=== PATIENT | male | born 1945 | race Caucasian/White ===

== ENCOUNTER → 2018-09-27 | Outpatient (CLI) | payer BC ==
[~2018-09-27] MED LIST: AMIO200 PO; AMLO5; AMOCLA875 PO; ANDROGEL1.25 GM TD; ASCO500 PO; ASPI81EC; CARV25 PO; CENTRUM MEN'S1 EACH PO; DABI150C PO; DILT120 PO; DILTIAZEM 24HR240 M1 PO; ESOM20 PO; FERR325 PO; FISH1000; FLEC50 PO; FURO20 PO; FURO40 PO; HYDCHL25; LEVO750 PO; LISI20; METO25ER PO; METO50ER PO; OMEP20ER PO; PRED20 PO; Prilosec Otc20 MG PO; Prinivil10 MG PO; SIMV20; SIMV40 PO; TADA10TA PO; VICODIN 5-3001 EACH PO; WARF5 PO; WARF7.5 PO; XARELTO20 MG PO; ZOLP10 PO
== END | disposition home or self-care (01) ==
LOC: LAB SHORT 13:52 → PLD 13:52
DX: L72.0 Epidermal cyst (principal)
CPT/HCPCS: 88305

== ENCOUNTER 2019-07-25 06:17 | Inpatient (IN) | payer MEDICARE, BC ==
[~2019-07-25] VITALS: Ht 182.9 cm; Wt 121.0 kg
[~2019-07-25 06:17] MED LIST changes: -ANDROGEL1.25 GM TD; -CARV25 PO; -DILTIAZEM 24HR240 M1 PO; -XARELTO20 MG PO
[2019-07-25 06:54] LABS: BASOPHILS ABSOLUTE AUTO 0.05 K/mm3 (0.00-0.23); BASOPHILS PERCENT AUTO 1 % (0-2); EOSINOPHILS ABSOLUTE AUTO 0.38 K/mm3 (0.00-0.68); EOSINOPHILS PERCENT AUTO 4 % (0-6); Hematocrit 43.4 % (37.0-53.0); Hemoglobin 14.4 g/dL (13.5-17.5); IMMATURE GRAN ABSOLUTE AUTO 0.06 K/mm3 (0.00-0.10); IMMATURE GRAN PERCENT AUTO 1 % (0-1); LYMPHOCYTES ABSOLUTE AUTO 1.08 K/mm3 (0.84-5.20); LYMPHOCYTES PERCENT AUTO 11 % (21-46); MONOCYTES ABSOLUTE AUTO 0.73 K/mm3 (0.16-1.47); MONOCYTES PERCENT AUTO 8 % (4-13); Mean Corpuscular HGB 32.8 pg (26.0-34.0); Mean Corpuscular HGB Conc 33.2 g/dL (31.5-36.5); Mean Corpuscular Volume 99 fL (80-100); Mean Platelet Volume 9.6 fL (9.1-12.4); NEUTROPHILS ABSOLUTE AUTO 7.21 K/mm3 (1.96-9.15); NEUTROPHILS PERCENT AUTO 76 % (41-73); Platelet Count 319 K/mm3 (150-400); RDW Coefficient Variation 13.1 % (11.7-14.2); RDW Standard Deviation 47.8 fL (35.1-46.3); Red Blood Cell Count 4.39 M/mm3 (4.30-5.90); White Blood Cell Count 9.51 K/mm3 (4.00-11.30)
[2019-07-25 07:05] LABS: Alanine Aminotransfer (ALT/SGP 27 U/L (12-78); Albumin, Blood 3.4 g/dL (3.4-5.0); Anion Gap 6 mmol/L (6-16); Aspartate Aminotrans (AST/SGOT 51 U/L (12-37); Bilirubin, Total 0.5 mg/dL (0.1-1.0); Blood Urea Nitrogen 24 mg/dL (8-24); Bun/Creatinine Ratio 19.5 (12.0-20.0); CO2, Blood 30 mmol/L (21-32); Calcium, Blood 8.8 mg/dL (8.5-10.1); Chloride, Blood 106 mmol/L (98-108); Creatinine, Blood 1.23 mg/dL (0.60-1.20); Glomerular Filtration Rate >60 (60-); Glucose, Blood 113 mg/dL (70-99); Potassium, Blood 3.7 mmol/L (3.5-5.5); Sodium, Blood 142 mmol/L (136-145)
[2019-07-25 07:09] LABS: Alk Phos 77 U/L (50-136); Globulin, Blood 3.3 g/dL (2.2-4.0); Total Protein, Blood 6.7 g/dL (6.4-8.2); Troponin I <0.015 ng/mL (0.000-0.040)
[2019-07-25 08:57] LABS: Source, Urine Clean Catch
[2019-07-25 09:06] LABS: Appearance, Urine Clear (Clear); Bilirubin, Urine Neg (Neg); Blood, Urine 1+ (Neg); Color, Urine Yellow (P-Yellow); Glucose Qualitative, Urine Neg (Neg); Ketones, Urine Neg (Neg); Leukocyte Esterase, Urine Neg (Neg); Nitrite, Urine Neg (Neg); Protein, Urine 2+ (Neg); Urobilinogen, Urine 2+ (Normal); pH, Urine 6.5 (5.0-8.0)
[2019-07-25 09:18] LABS: Bacteria Rare /hpf; Red Blood Cells, Urine 0-2 /hpf (0-2); Squamous Epithelial Cells Not Seen /hpf (Few)
[2019-07-25] MEDS ORDERED: Ambien10 MG PO (12:41)
[2019-07-25] MEDS ORDERED: Nexium40 MG PO (12:41)
[2019-07-25] MEDS ORDERED: SPIRIVA RESPIMAT4 G1 INH (12:41)
[2019-07-25] MEDS ORDERED: HYDROCODONE-AC1 EAC1 PO (12:42)
[2019-07-25] MEDS ORDERED: FURO40 PO (12:43)
[2019-07-25] MEDS ORDERED: XARELTO20 MG PO (12:43)
[2019-07-25] MEDS ORDERED: TAMSULOSIN HCL0.4 M1 PO (12:44)
[2019-07-25] MEDS ORDERED: Androgel5 GM TOP (12:46)
[2019-07-25] MEDS ORDERED: DILTIAZEM 24HR240 M1 PO (12:47)
[2019-07-25] MEDS ORDERED: Cialis5 MG PO (12:48)
[2019-07-25] MEDS ORDERED: LOSARTAN POTASS25 M2 PO (12:48)
[2019-07-25] MEDS ORDERED: ASCO500 PO (12:49)
[2019-07-25] MEDS ORDERED: FEROSUL325 MG PO (12:49)
[2019-07-25] MEDS ORDERED: CARV25 PO (12:49)
[2019-07-25] MEDS ORDERED: THERA1 EACH PO (12:50)
--- NOTE | 2019-07-25 13:39 | NUR ---
PT ARRIVAL... PT ARRIVED ON UNIT VIA GURNEY. PT IS A&Ox4 AND IND IN THE ROOM. PT WAS ADMITTED FOR BRANDEN FLEMING IN THE AM AND IS TO BE NPO AFTER MIDNIGHT. PT IS C/O OF SEVERE PAIN TO HIS ABD RADIATING TO HIS BACK. PT'S VS STABLE AT THIS TIME PT IS ON 4L NC WITH O2 SATS >91%. PT USES CPAP AT NIGHT. PT MEDICATED PER EMAR FOR PAIN WITH GOOD RESULTS. PT IS A LITTLE DROWSY BUT WAKES EASY AND IS ABLE TO RESPOND APROP. CALL LIGHT IN REACH WILL CONTINUE TO MONITOR.
[2019-07-25 19:01] LABS: PCO2 Arterial 37.8 mmHg (35-45); pH Blood Arterial 7.46 (7.35-7.45)
--- NOTE | 2019-07-25 19:31 | NUR ---
SHIFT SUMMARY... AT APROX 1800 THIS RN WENT INTO THE PT'S ROOM TO GIVE MEDICATIONS, PT APPEARED TO BE IN RESPIRATORY DISTRESS, HIS FACE WAS DUSKY, RR 38 EVEN BUT LABORED, AND HIS FINGERS WERE DUSKY/PALE. A FOREHEAD O2 PROB WAS NEEDED TO OBATAIN A GOOD PULSEOX READING. PT'S O2 WAS INCREASED TO 7L NON-REBREATHER, PT STATED THAT HE WAS HAVING SEVERE ABD PAIN 7/10, PT WAS MEDICATED FOR PAIN WITH DILAUDED 1MG, PT HAD BEEN MEDICATED WITH THIS DOSE BEFORE WITH GOOD RESULTS. PT'S RR DECREASED BUT PT WAS UNABLE TO ANSWER QUESTIONS AROPPRIATELY. WHEN ASKED WHERE HE THOUGHT HE WAS PT STATED "[facility]" PT WAS UNABLE TO ANSWER ANY OTHER QUESTIONS EXCEPT FOR "WHAT." PT'S OTHER VS DURING THIS TIME WERE STABLE. PT IS IN AFIB IN THE 90'S-100'S. PROVIDER WAS CALLED AND ORDERS OBTAINED FOR STAT CHEST XRAY AND SQ LOVENOX. THIS WAS DONE, PT'S O2 WAS TITRATED DOWN TO 2 LNC BUT PT'S MENTAL STATUS WAS STILL NOT THE SAME. HOSPTITAL PROVIDE WAS CALLED AND CAME TO ASSESS THE PT. REPORT WAS GIVEN TO ONCOMING RN.
[2019-07-25 19:52] LABS: Hemoglobin 13.5 g/dL (13.5-17.5); Mean Corpuscular HGB 32.5 pg (26.0-34.0); Mean Corpuscular HGB Conc 32.9 g/dL (31.5-36.5); Mean Corpuscular Volume 99 fL (80-100); Mean Platelet Volume 9.8 fL (9.1-12.4); Platelet Count 252 K/mm3 (150-400); RDW Coefficient Variation 13.6 % (11.7-14.2); RDW Standard Deviation 49.1 fL (35.1-46.3); Red Blood Cell Count 4.15 M/mm3 (4.30-5.90); White Blood Cell Count 12.15 K/mm3 (4.00-11.30)
[2019-07-25 20:08] LABS: D-Dimer, Quantitative 1.82 mg/L FEU (0.00-0.52)
[2019-07-25 20:23] LABS: BAND PERCENT MAN 34 % (0-8); BASOPHILS PERCENT MAN 0 % (0-2); EOSINOPHILS PERCENT MAN 0 % (0-6); LYMPHOCYTES ABSOLUTE MAN 0.12 K/mm3 (0.84-5.20); LYMPHOCYTES PERCENT MAN 1 % (21-46); METAMYELOCYTE ABSOLUTE MAN 0.24 K/mm3 (0.00-0.00); METAMYELOCYTE PERCENT MAN 2 % (0-0); MONOCYTES ABSOLUTE MAN 0.48 K/mm3 (0.16-1.47); MONOCYTES PERCENT MAN 4 % (4-13); MYELOCYTE ABSOLUTE MAN 0.24 K/mm3 (0.00-0.00); MYELOCYTE PERCENT MAN 2 % (0-0); NEUTROPHILS ABSOLUTE MAN 11.05 K/mm3 (1.96-9.15); SEG NEUTROPHILS PERCENT MAN 57 % (41-73); TOTAL CELLS COUNTED 100
--- NOTE | 2019-07-25 21:26 | NUR ---
This student nurse has permission to access patient information.
[2019-07-25 23:39] LABS: Adenovirus Not Detected (NOT DETECT); Bordetella pertussis Not Detected (NOT DETECT); Chlamydophila pneumoniae Not Detected (NOT DETECT); Coronavirus 229E Not Detected (NOT DETECT); Coronavirus HKU1 Not Detected (NOT DETECT); Coronavirus NL63 Not Detected (NOT DETECT); Coronavirus OC43 Not Detected (NOT DETECT); Human Metapneumovirus Not Detected (NOT DETECT); Human Rhinovirus/Enterovirus Not Detected (NOT DETECT); Influenza A Not Detected (NOT DETECT); Influenza A/2009-H1 Not Detected (NOT DETECT); Influenza A/H1 Not Detected (NOT DETECT); Influenza A/H3 Not Detected (NOT DETECT); Influenza B Not Detected (NOT DETECT); Mycoplasma pneumoniae Not Detected (NOT DETECT); Parainfluenza Virus 1 Not Detected (NOT DETECT); Parainfluenza Virus 2 Not Detected (NOT DETECT); Parainfluenza Virus 3 Not Detected (NOT DETECT); Parainfluenza Virus 4 Not Detected (NOT DETECT); Respiratory Syncytial Virus Not Detected (NOT DETECT)
--- NOTE | 2019-07-25 23:59 | NUR ---
APPROX 1900: PATIENT TAKEN TO HEAD CT AFTER AM NURSE REPORTED CHANGE IN MENTATION, PATIENT UNABLE TO FOLLOW COMMANDS OR ANSWER QUESTIONS AT THAT TIME, PATIENT AT BEDSIDE, ADMISSION COMPLETED. APPROX 1999: PATIENT BACK FROM CT ALERT AND ORIENTED TO ALL AND TALKING IN COMPLETE SENTENCES, ABLE TO COLLOW COMMANDS. PATIENT HAS INTERMITTENT EPISODES OF CONFUSION, VSS, FORESTRY TREE PRUNER AFSANEH AND STAFF WATCHING PATIENT CLOSELY. APPROX 2200 PATIENT HR NOW OVER 100/AFIB, FORESTRY TREE PRUNER AFSANEH AWARE AND ORDERS RECIEVED.
[2019-07-26 00:35] LABS: Hematocrit 39.7 % (37.0-53.0); Mean Corpuscular HGB 32.7 pg (26.0-34.0); Mean Corpuscular HGB Conc 32.7 g/dL (31.5-36.5); Mean Corpuscular Volume 100 fL (80-100); Mean Platelet Volume 9.7 fL (9.1-12.4); Platelet Count 223 K/mm3 (150-400); RDW Coefficient Variation 13.7 % (11.7-14.2); Red Blood Cell Count 3.98 M/mm3 (4.30-5.90); White Blood Cell Count 19.45 K/mm3 (4.00-11.30)
[2019-07-26 00:49] LABS: International Normalized Ratio 1.3; Prothrombin Time Results 13.7 Sec (9.7-11.5)
[2019-07-26 00:56] LABS: Albumin, Blood 3.1 g/dL (3.4-5.0); Albumin/Globulin Ratio 1.1 (0.8-1.8); Bilirubin, Total 5.9 mg/dL (0.1-1.0); Bun/Creatinine Ratio 18.5 (12.0-20.0); Calcium, Blood 8.2 mg/dL (8.5-10.1); Creatinine, Blood 1.46 mg/dL (0.60-1.20); Globulin, Blood 2.9 g/dL (2.2-4.0); Potassium, Blood 3.7 mmol/L (3.5-5.5)
[2019-07-26 01:10] LABS: BAND PERCENT MAN 22 % (0-8); BASOPHILS PERCENT MAN 0 % (0-2); EOSINOPHILS PERCENT MAN 0 % (0-6); LYMPHOCYTES % ATYPICAL MANUAL 1 % (0-0); LYMPHOCYTES ABSOLUTE MAN 1.55 K/mm3 (0.84-5.20); LYMPHOCYTES PERCENT MAN 7 % (21-46); METAMYELOCYTE ABSOLUTE MAN 0.77 K/mm3 (0.00-0.00); METAMYELOCYTE PERCENT MAN 4 % (0-0); MONOCYTES ABSOLUTE MAN 1.75 K/mm3 (0.16-1.47); MONOCYTES PERCENT MAN 9 % (4-13); MYELOCYTE ABSOLUTE MAN 0.19 K/mm3 (0.00-0.00); MYELOCYTE PERCENT MAN 1 % (0-0); NEUTROPHILS ABSOLUTE MAN 15.17 K/mm3 (1.96-9.15); SEG NEUTROPHILS PERCENT MAN 56 % (41-73); TOTAL CELLS COUNTED 100
[2019-07-26 11:30] LABS: Hematocrit 38.9 % (37.0-53.0); Hemoglobin 12.4 g/dL (13.5-17.5)
--- NOTE | 2019-07-26 14:51 | NUR ---
Echocardiogram completed.
--- NOTE | 2019-07-26 15:52 | NUR ---
PT ASSUMED CARE @1200 POST OP LAP NATALEE: GALL BLADDER REMOVAL PT RECEIVED VIA STRETCHER, PT ALERT AND COHERENT. PT HAS 3 ACCESS SITES ON THE ABDOMEN WITH TRISTA DRAIN ON LLQ DRAINING BLOODY FLUID 90 MLS DRAINED OF THIS TIME. PT C/O ABDOMINAL PAIN 8/10 DILAUDID 0.5MG IV ADMINISTERED 15MINS UPON ARRIVAL AND WAS NOT HELPFUL ANOTHER 0.5MG DILAUDID IV ADMINISTERED PT STATED IT'S SLIGHTLY EFFECTIVE PAIN WENT DOWN TO 5/10. HRR STILL AFIB AT 100'S BP SYSTOLIC RANGING 90'S-100'S. PT ARRIVED WITH 4L OF O2 VIA NASAL CANNULA SATS KEPT ABOVE 95%. ABDOMINAL INCISION/ACCESS SITES COVERED WITH GAUZE, DRESSING INTACT, NO OTHER ABNORMALITY NOTED AROUND THE SITE, PT ON CLEAR LIQUID DIET AND WAS ABLE TO TOLERATE. PT CURRENTLY RESTING IN BED WILL MONITOR.
--- NOTE | 2019-07-26 17:13 | NUR ---
SHIFT SUMMARY: PT POST LAP NATALEE WITH GALLBLADDER REMOVAL RETURNED FROM DAY SURGERY ALERT AND COHERENT WITH SOME CONFUSION ABLE TO FOLLOW DIRECTIONS APPROPRIATELY. PT HAD 4 ABDOMINAL ACCESS SITE/INCISION COVERED WITH GAUZE AND CLEAR DRESSING. TRISTA DRAIN ON LEFT MID QUADRANT DRAINED APPROX 100 MLS OF THIS TIME, DRAINAGE BLOODY IN COLOR THIN IN CONSISTENCY. PT HAS BEEN C/O PAIN 8/10 MANAGED WITH DILAUDID IV 1MG Q3 HRS CURRENT PAIN LEVEL 5/10. PT'S BP SYSTOLIC RANGING FROM 90'S-100'S UPON ARRIVAL TO THE UNIT, OF NOW ITS BEEN STABLE IN THE 110'S. HRR REMAINED AFIB ON THE 100'S PT HAS ORDER FOR CARDIZEM DRIP TO START IF ORAL CARDIZEM ID INEFFECTIVE NEEDED. LUNGS COARSE AND DIMINISHED ON THE BASES SATS KEPT ABOVE 90% ON CPAP/NC 3L. PT CURRENTLY RESTING IN BED, INSTRUCTED TO BED REST FOR NOW, PT TEMPORARY ON CLEAR LIQUID DIET S/P CHOLECYSTECTOMY. WILL CONTINUE TO MONITOR.
--- NOTE | 2019-07-26 19:30 | NUR ---
RECEIVED REPORT FROM BASSAM DYER. ASSUMED CARE OF PT. IN NO ACUTE DISTRESS, APPEARS COMFORTABLE AT THIS TIME. ABD GILDARDO CDI AT THIS TIME. PT DENIES ANY NEEDS AT THIS TIME, CALL LIGHT AND POSSESSIONS IN REACH, WILL CONTINUE TO MONITOR.
[2019-07-27 03:44] LABS: Hematocrit 34.8 % (37.0-53.0); Hemoglobin 11.4 g/dL (13.5-17.5); Mean Corpuscular HGB Conc 32.8 g/dL (31.5-36.5); Mean Corpuscular Volume 101 fL (80-100); Mean Platelet Volume 10.3 fL (9.1-12.4); Platelet Count 181 K/mm3 (150-400); RDW Coefficient Variation 13.8 % (11.7-14.2); RDW Standard Deviation 50.9 fL (35.1-46.3); Red Blood Cell Count 3.45 M/mm3 (4.30-5.90); White Blood Cell Count 14.91 K/mm3 (4.00-11.30)
[2019-07-27 03:59] LABS: Albumin, Blood 2.6 g/dL (3.4-5.0); Albumin/Globulin Ratio 0.8 (0.8-1.8); Bilirubin, Total 4.5 mg/dL (0.1-1.0); Bun/Creatinine Ratio 22.8 (12.0-20.0); Calcium, Blood 8.3 mg/dL (8.5-10.1); Creatinine, Blood 1.36 mg/dL (0.60-1.20); Globulin, Blood 3.2 g/dL (2.2-4.0); Total Protein, Blood 5.8 g/dL (6.4-8.2)
[2019-07-27 05:17] LABS: BAND PERCENT MAN 27 % (0-8); BASOPHILS PERCENT MAN 0 % (0-2); EOSINOPHILS PERCENT MAN 0 % (0-6); LYMPHOCYTES ABSOLUTE MAN 0.44 K/mm3 (0.84-5.20); LYMPHOCYTES PERCENT MAN 3 % (21-46); MONOCYTES ABSOLUTE MAN 0.59 K/mm3 (0.16-1.47); MONOCYTES PERCENT MAN 4 % (4-13); NEUTROPHILS ABSOLUTE MAN 13.86 K/mm3 (1.96-9.15); SEG NEUTROPHILS PERCENT MAN 66 % (41-73); TOTAL CELLS COUNTED 100
--- NOTE | 2019-07-27 06:54 | NUR ---
PT RESTING IN BED COMFORTABLY, IN NO ACUTE DISTRESS. WAS MONITORED EVERY 1-2 HOURS WITH NEEDS MET, DENIES ANY NEEDS AT THIS TIME. CALL LIGHT AND POSSESSIONS IN REACH.
--- NOTE | 2019-07-27 18:17 | NUR ---
SHIFT SUMMARY PT A&Ox4; FORGETFUL, ANXIOUS BUT COOPERATIVE WITH CARE. PT REPORTS "ALL OVER PAIN" AND RIGHT SIDE ABD PAIN, MEDICATED x1 WITH NORCO THIS EVENING. PT SOB WITH EXERTION, WEARS CPAP WITH 3L BLEED IN; PT STARTED THIS AM ON RA HAS NEEDED 1-3L WHILE SLEEPING T/O THE DAY, REFUSING CPAP WHILE SLEEPING DURING DAY SHIFT. PT RECEIVING IV ANTIBIOTICS. DRESSING FROM LAP NATALEE C/D/I, TRISTA DRAIN IN PLACE, DRAINING SANGIONOUS FLUID. PT TOLERATING CLEAR LIQUID DIET. PT REPROTS PASSING FLATULENCE T/O SHIFT. PT HYPOTENSICE AT APPROX 1130 THIS AM, NOTIIFED DR HSU NEW ORDERS FOR 500cc NS BOLUS, WITH POSITIVE REUSLTS OF BP. TELE NOTED 2 PAUSES ON TELEMETRY 1401 AND 1523; NOTIFIED DR HSU, CONTINUE TO MONITOR AND UPATED HOLD PARAMETERS FOR COREG. OTHER VSS. NO OTHER ACUTE CHANGES NOTED DURING SHIFT. WILL CONTINUE TO MONITOR UNTIL REPORT GIVEN TO ONCOMING RN.
--- NOTE | 2019-07-27 19:00 | NUR ---
RECEIVED REPORT FROM GOMEZ ÓGMEZ. ASSUMED CARE OF PT. IN NO ACUTE DISTRESS AT THIS TIME. DENIES ANY NEEDS. CALL LIGHT AND POSSESSIONS IN REACH, BED ALARM ACTIVATED. WILL CONTINUE TO MONITOR.
--- NOTE | 2019-07-27 20:03 | NUR ---
PAUSES PATIENT HAS HAD SEVERAL PAUSES THROUGHOUT THE DAY PER REPORT. PATIENT HAD AN ADITIONAL PAUSE AT APROX 1948 THAT WAS APPROX 3.9 SECONDS LONG. NURSE PRACTIONER OFELIA WEATHERS NOTIFIED OF PAUSES AND OF LOW BLOOD PRESSURES.
--- NOTE | 2019-07-27 23:24 | NUR ---
PT REQUESTING AMBIEN. BPS TRENDING LOW AT THIS TIME. PT EDUCATED ON REASON FOR WITHHOLDING MEDICATION. PT AGREEABLE.
--- NOTE | 2019-07-27 23:30 | NUR ---
OFELIA, NURSE PRACTITIONER CALLED REGARDING PT'S INCREASINGLY FREQUENT PAUSES IN HR. ORDERS RECEIVED. WILL CONTINUE TO MONITOR.
[2019-07-28 00:11] LABS: Magnesium, Blood 2.3 mg/dL (1.6-2.4); Potassium, Blood 3.9 mmol/L (3.5-5.5)
--- NOTE | 2019-07-28 00:30 | NUR ---
SPOKE TO OFELIA, NURSE PRACTITIONER REGARDING PT LAB RESULTS. NO NEW ORDERS RECEIVED AT THIS TIME.
--- NOTE | 2019-07-28 03:39 | NUR ---
PT RESTING IN BED COMFORTABLY, NO FURTHER EPISODES OF PAUSES IN HR NOTED AT THIS TIME. PT CONTINUES TO BE ASYMPTOMATIC. WILL CONTINUE TO MONITOR.
[2019-07-28 04:48] LABS: BASOPHILS ABSOLUTE AUTO 0.03 K/mm3 (0.00-0.23); BASOPHILS PERCENT AUTO 0 % (0-2); EOSINOPHILS ABSOLUTE AUTO 0.03 K/mm3 (0.00-0.68); EOSINOPHILS PERCENT AUTO 0 % (0-6); Hematocrit 31.6 % (37.0-53.0); Hemoglobin 10.3 g/dL (13.5-17.5); IMMATURE GRAN ABSOLUTE AUTO 0.22 K/mm3 (0.00-0.10); IMMATURE GRAN PERCENT AUTO 2 % (0-1); LYMPHOCYTES ABSOLUTE AUTO 0.78 K/mm3 (0.84-5.20); LYMPHOCYTES PERCENT AUTO 5 % (21-46); MONOCYTES ABSOLUTE AUTO 1.42 K/mm3 (0.16-1.47); MONOCYTES PERCENT AUTO 10 % (4-13); Mean Corpuscular HGB 32.8 pg (26.0-34.0); Mean Corpuscular HGB Conc 32.6 g/dL (31.5-36.5); Mean Corpuscular Volume 101 fL (80-100); NEUTROPHILS ABSOLUTE AUTO 12.08 K/mm3 (1.96-9.15); NEUTROPHILS PERCENT AUTO 83 % (41-73); Platelet Count 184 K/mm3 (150-400); RDW Coefficient Variation 13.7 % (11.7-14.2); RDW Standard Deviation 50.4 fL (35.1-46.3); Red Blood Cell Count 3.14 M/mm3 (4.30-5.90); White Blood Cell Count 14.56 K/mm3 (4.00-11.30)
[2019-07-28 05:10] LABS: Albumin, Blood 2.3 g/dL (3.4-5.0); Albumin/Globulin Ratio 0.7 (0.8-1.8); Bilirubin, Total 2.9 mg/dL (0.1-1.0); Bun/Creatinine Ratio 23.2 (12.0-20.0); Calcium, Blood 8.4 mg/dL (8.5-10.1); Creatinine, Blood 1.38 mg/dL (0.60-1.20); Globulin, Blood 3.4 g/dL (2.2-4.0); Potassium, Blood 3.6 mmol/L (3.5-5.5); Total Protein, Blood 5.7 g/dL (6.4-8.2)
--- NOTE | 2019-07-28 06:32 | NUR ---
PT SITTING UP IN BED WATCHING TELEVISION. IN NO ACUTE DISTRESS. WAS MONITORED EVERY 1-2 HOURS WITH NEEDS MET. DENIES ANY NEEDS AT THIS TIME. HR AND RHYTHM STABLE, BP STABLE. CALL LIGHT AND POSSESSIONS IN REACH, BED IN LOW POSITION, WITH BED ALARM ACTIVATED.
--- NOTE | 2019-07-28 18:30 | NUR ---
SHIFT SUMMARY PT A&Ox4; FORGETFUL AT TIMES. CALM AND COOPERATIVE WTIH CARE. PT RESTING IN BED; UP SBA IN ROOM. PT REPORT RIGHT SIDED ABD PAIN; MEDICATED x2 WITH NORCO WITH POSITIVE RESULTS. PT SOB WITH EXERTION; SPO2 >90% ON RA, WEARING CPAP WITH 3L BLEED WHILE SLEEPING, APPEARS TO BE SLEEPING INTERMITTENLY T/O SHIFT. PT ABD DRESSING, CLEAN DRY AND INTACT. TRISTA DRAIN, DRAINING RED FLUID. NOT PAUES NOTED PER TELE; HELD CARDIAC MEDICATIONS PER VS PARAMETERS. PT REPORTS HE IS CONTINUEING TO PASS GAS. ADVANCED TO FULL LIQUID FOR DINNER, APPEARS TO HAVE TOLERATED WELL. VSS. NO OTHER ACUTE CHANGES NOTED DURING SHIFT. WILL CONTINUE TO MONITOR UNITL REPORT GIVEN TO ONCOMING RN.
--- NOTE | 2019-07-28 19:20 | NUR ---
RECEIVED REPORT FROM GOMEZ GÓMEZ. ASSUMED CARE OF PT. SITTING UP IN BED COMFORTABLY AT THIS TIME, NO S/S ACUTE DISTRESS NOTED. DENIES ANY NEEDS AT THIS TIME, WILL CONTINUE TO MONITOR. CALL LIGHT AND POSSESSIONS IN REACH.
[2019-07-29 03:33] LABS: BASOPHILS ABSOLUTE AUTO 0.04 K/mm3 (0.00-0.23); BASOPHILS PERCENT AUTO 0 % (0-2); EOSINOPHILS PERCENT AUTO 2 % (0-6); Hematocrit 31.9 % (37.0-53.0); Hemoglobin 10.4 g/dL (13.5-17.5); IMMATURE GRAN ABSOLUTE AUTO 0.11 K/mm3 (0.00-0.10); IMMATURE GRAN PERCENT AUTO 1 % (0-1); LYMPHOCYTES PERCENT AUTO 10 % (21-46); MONOCYTES ABSOLUTE AUTO 1.47 K/mm3 (0.16-1.47); MONOCYTES PERCENT AUTO 12 % (4-13); Mean Corpuscular HGB 32.6 pg (26.0-34.0); Mean Corpuscular HGB Conc 32.6 g/dL (31.5-36.5); Mean Corpuscular Volume 100 fL (80-100); Mean Platelet Volume 10.2 fL (9.1-12.4); NEUTROPHILS ABSOLUTE AUTO 8.79 K/mm3 (1.96-9.15); NEUTROPHILS PERCENT AUTO 75 % (41-73); Platelet Count 206 K/mm3 (150-400); RDW Coefficient Variation 13.5 % (11.7-14.2); RDW Standard Deviation 50.2 fL (35.1-46.3); Red Blood Cell Count 3.19 M/mm3 (4.30-5.90); White Blood Cell Count 11.81 K/mm3 (4.00-11.30)
[2019-07-29 03:55] LABS: Alanine Aminotransfer (ALT/SGP 66 U/L (12-78); Albumin, Blood 2.1 g/dL (3.4-5.0); Albumin/Globulin Ratio 0.6 (0.8-1.8); Alk Phos 137 U/L (50-136); Anion Gap 4 mmol/L (6-16); Aspartate Aminotrans (AST/SGOT 23 U/L (12-37); Blood Urea Nitrogen 25 mg/dL (8-24); Bun/Creatinine Ratio 22.1 (12.0-20.0); CO2, Blood 28 mmol/L (21-32); Calcium, Blood 7.9 mg/dL (8.5-10.1); Chloride, Blood 108 mmol/L (98-108); Creatinine, Blood 1.13 mg/dL (0.60-1.20); Globulin, Blood 3.3 g/dL (2.2-4.0); Glomerular Filtration Rate >60 (60-); Glucose, Blood 95 mg/dL (70-99); Potassium, Blood 3.7 mmol/L (3.5-5.5); Sodium, Blood 140 mmol/L (136-145); Total Protein, Blood 5.4 g/dL (6.4-8.2)
--- NOTE | 2019-07-29 06:31 | NUR ---
PT RESTING IN BED COMFORTABLY, IN NO ACUTE DISTRESS. WAS MONITORED EVERY 1-2 HOURS WITH NEEDS MET. DENIES ANY NEEDS AT THIS TIME. CALL LIGHT AND POSSESSIONS IN REACH, BED IN LOW POSITION WITH BED ALARM ACTIVATED.
--- NOTE | 2019-07-29 18:20 | NUR ---
ARRIVAL TO UNIT PT AMBULATES TO ROOM W/ STANDBY ASSIST. PLEASANT AND COOPEREATIVE. IVF AND ABX HUNG; PAIN MEDS GIVEN.
[2019-07-30 04:37] LABS: BASOPHILS ABSOLUTE AUTO 0.06 K/mm3 (0.00-0.23); BASOPHILS PERCENT AUTO 0 % (0-2); EOSINOPHILS ABSOLUTE AUTO 0.38 K/mm3 (0.00-0.68); EOSINOPHILS PERCENT AUTO 3 % (0-6); Hematocrit 35.7 % (37.0-53.0); Hemoglobin 11.4 g/dL (13.5-17.5); IMMATURE GRAN ABSOLUTE AUTO 0.43 K/mm3 (0.00-0.10); IMMATURE GRAN PERCENT AUTO 3 % (0-1); LYMPHOCYTES ABSOLUTE AUTO 1.68 K/mm3 (0.84-5.20); LYMPHOCYTES PERCENT AUTO 11 % (21-46); MONOCYTES ABSOLUTE AUTO 1.79 K/mm3 (0.16-1.47); MONOCYTES PERCENT AUTO 12 % (4-13); Mean Corpuscular HGB 32.7 pg (26.0-34.0); Mean Corpuscular HGB Conc 31.9 g/dL (31.5-36.5); Mean Corpuscular Volume 102 fL (80-100); Mean Platelet Volume 10.2 fL (9.1-12.4); NEUTROPHILS ABSOLUTE AUTO 10.54 K/mm3 (1.96-9.15); NEUTROPHILS PERCENT AUTO 71 % (41-73); Platelet Count 243 K/mm3 (150-400); RDW Coefficient Variation 13.9 % (11.7-14.2); RDW Standard Deviation 52.5 fL (35.1-46.3); Red Blood Cell Count 3.49 M/mm3 (4.30-5.90); White Blood Cell Count 14.88 K/mm3 (4.00-11.30)
--- NOTE | 2019-07-30 04:54 | NUR ---
SUMMARY: A/OX4, CALLS APPROPRIATELY AND PLEASANT/COOPERATIVE W/CARE. HE'S DAY 4 S/P LAP NATALEE. PT IS SBA IN ROOM AND USES URINAL INDEPENDENTLY AT EOB. HE REFUSED BOWEL MEDS D/T STATING HE'S BEEN PASSING FLATUS AND HAVING REGULAR BM'S. ABDO REMAINS ROUND/DISTENDED BUT PT ADMITS IT'S NEARLY BACK TO BASELINE. DX PRESENT TO OLD TRISTA DRAIN SITE AND STERI STRIPS TO X3 LAP NATALEE SITES REMAIN C/D/I. NORCO RECIEVED PO X2 DOSES FOR TOLERABLE CONTROL OF ABDO AND BACK PAIN. NS W/20 KCL INSUSES. HE WORE HOME CPAP AT HS W/3L BLEED IN AND SPO2 WNL. HE REMAINS AFIB AT 70'S-100'S BPM PER TELEMETRY, SCHEDULED CARDIZEM RECIEVED. ARJUNIEN PROVIDED AT HS FOR SLEEP PER PT REQUEST. NO ACUTE CHANGES, VSS AND AFEBRILE. WCTM AND REPORT TO DAY RN.
[2019-07-30 04:59] LABS: Alanine Aminotransfer (ALT/SGP 56 U/L (12-78); Albumin, Blood 2.3 g/dL (3.4-5.0); Albumin/Globulin Ratio 0.6 (0.8-1.8); Alk Phos 173 U/L (50-136); Anion Gap 5 mmol/L (6-16); Aspartate Aminotrans (AST/SGOT 22 U/L (12-37); Bilirubin, Total 1.7 mg/dL (0.1-1.0); Blood Urea Nitrogen 17 mg/dL (8-24); Bun/Creatinine Ratio 17.3 (12.0-20.0); CO2, Blood 26 mmol/L (21-32); Calcium, Blood 8.5 mg/dL (8.5-10.1); Chloride, Blood 110 mmol/L (98-108); Creatinine, Blood 0.98 mg/dL (0.60-1.20); Globulin, Blood 3.6 g/dL (2.2-4.0); Glomerular Filtration Rate >60 (60-); Glucose, Blood 93 mg/dL (70-99); Sodium, Blood 141 mmol/L (136-145); Total Protein, Blood 5.9 g/dL (6.4-8.2)
--- NOTE | 2019-07-30 09:24 | NUR ---
DR AMARO HERE TO SEE PT.
[2019-07-30] MEDS ORDERED: METAMUCIL0.4 GM PO (10:49)
[2019-07-30] MEDS ORDERED: CARV25 PO (10:49)
[2019-07-30] MEDS ORDERED: LEVFLO500 PO (10:50)
[2019-07-30] MEDS ORDERED: SENN187 PO (10:50)
--- NOTE | 2019-07-30 11:38 | NUR ---
DISCHARGE: PT EATING AND DRINKING, VOIDING, PASSING GAS. PT REPORTS PAIN CONTROLLED ON PO PAIN MEDICATION. PT REPORTS UNDERSTANDING OF DISCHARGE INSTRUCTIONS. PT SENT WITH BELONGINGS, PAPERWORK, AND SCRIPT. 0THER MEDICATIONS FAXED TO PHARMACY OF PT'S CHOICE. PT UP IND WITH STEADY GAIT.
== END 2019-07-30 11:38 | disposition home or self-care (01) | DRG 854 ==
LOC: ER 06:17 → PCU 12:22 → SURS 07-29 17:48
PROVIDERS: Anesthesiology; Emergency Medicine; Family Medicine; Internal Medicine Gastroenterology; Nurse Practitioner Acute Care; ADMIT Surgery
PROC: BF03YZZ Plain Radiography of Gallbladder and Bile Ducts using Other Contrast (ICD-10-PCS; 2019-07-26)
PROC: 0FT44ZZ Resection of Gallbladder, Percutaneous Endoscopic Approach (ICD-10-PCS; principal; 2019-07-26 08:30)
DX: A41.51 Sepsis due to Escherichia coli [E. coli] (principal); K80.00 Calculus of gallbladder with acute cholecystitis without obstruction; I48.20 Chronic atrial fibrillation, unspecified; N18.3 Chronic kidney disease, stage 3 (moderate); J44.9 Chronic obstructive pulmonary disease, unspecified; N40.0 Benign prostatic hyperplasia without lower urinary tract symptoms; G47.33 Obstructive sleep apnea (adult) (pediatric); I27.20 Pulmonary hypertension, unspecified; I95.81 Postprocedural hypotension; K44.9 Diaphragmatic hernia without obstruction or gangrene; I12.9 Hypertensive chronic kidney disease with stage 1 through stage 4 chronic kidney disease, or unspecified chronic kidney disease; E78.5 Hyperlipidemia, unspecified; F51.04 Psychophysiologic insomnia; F17.200 Nicotine dependence, unspecified, uncomplicated; Z79.01 Long term (current) use of anticoagulants; Z79.899 Other long term (current) drug therapy
CPT/HCPCS: 0099U; 36415; 36600; 70450; 71045; 71275; 74174; 74300; 76705; 80053; 81001; 82803; 82947; 83605; 83690; 83735; 83880; 84132; 84145; 84484; 85014; 85018; 85025; 85379; 85610; 85730; 87040; 87077; 87186; 88304; 93005; 93010; 93306; 94640; 94760; 94762; 96365-59; 96366; 96375-59; 96376-59; 99285-25; A9270-GY; C1729; J0330; J0456; J0610; J1100; J1170; J1650; J1940; J1956; J2250; J2370; J2405; J2543; J2704; J3010; J3480; J7040; J7050; J7120; Q9967